=== PATIENT | female | born 1985 | race Caucasian/White ===

== ENCOUNTER 2016-12-14 18:44 | Emergency (ER) | payer BC ==
[2016-12-14 19:22] VITALS: BP 120/70
--- NOTE | 2016-12-14 19:47 | UC ---
Throat Pain/Nasal Lee HPI - HPI Summary HPI Summary: 2 day history of throat pain and difficulty swallowing, headache and malaise. - History of Current Complaint Chief Complaint: UCGeneralIllness Stated Complaint: SORE THROAT Time Seen by Provider: 12/14/16 19:25 Hx Obtained From: Patient Hx Last Menstrual Period: 12/14/16 Onset/Duration: Gradual Onset, Lasting Days - 2 Cough: Nonproductive Associated Signs & Symptoms: Positive: Dysphagia, Hoarseness - Epiglottits Risk Factors Epiglottis Risk Factors: Negative - Allergies/Home Medications Allergies/Adverse Reactions: Allergies Allergy/AdvReac Type Severity Reaction Status Date / Time No Known Allergies Allergy Verified 12/14/16 19:22 Home Medications: Home Medications Control Pill 1 tab DAILY 12/14/16 [History Confirmed 12/14/16] PMH/Surg Hx/FS Hx/Imm Hx Endocrine History Of: Denies: Diabetes Cardiovascular History Of: Denies: Cardiac Disorders Respiratory History Of: Denies: Asthma - Surgical History Surgical History: None - Family History Known Family History: Positive: Other - healthy family, no illnesses. - Social History Occupation: Employed Full-time Lives: With Family Alcohol Use: None Substance Use Type: None Smoking Status (MU): Never Smoked Tobacco - Immunization History Most Recent Influenza Vaccination: [id number] Review of Systems Constitutional: Fever, Fatigue Skin: Negative Eyes: Negative ENT: Sore Throat Respiratory: Negative Cardiovascular: Negative Gastrointestinal: Negative Genitourinary: Negative Motor: Negative Neurovascular: Negative Musculoskeletal: Negative Neurological: Negative Psychological: Negative All Other Systems Reviewed And Are Negative: Yes Physical Exam Triage Information Reviewed: Yes Appearance: Ill-Appearing - looks mildly unwell Vital Signs: Initial Vital Signs Temp 99.4 F 12/14/16 19:17 Pulse 94 12/14/16 19:17 Resp 17 12/14/16 19:17 BP 120/70 12/14/16 19:17 Pulse Ox 100 12/14/16 19:17 Eyes: Positive: Conjunctiva Clear ENT: Positive: Tonsillar swelling - bilateral large and red, Tonsillar exudate Dental Exam: Normal Neck: Positive: Supple, Enlarged Nodes @ - anterior cervical chain Respiratory: Positive: Lungs clear, Normal breath sounds Cardiovascular: Positive: RRR, No Murmur Musculoskeletal Exam: Normal Neurological Exam: Normal Psychological Exam: Normal Skin Exam: Normal Diagnostics - Laboratory Diagnostic Studies Completed/Ordered: rapid strep positive Throat Pain/Nasal Course/Dx - Course Course Of Treatment: amoxicillin for strep; ibuprofen for pain - Differential Dx/Diagnosis Provider Diagnoses: strep tonsillitis. Discharge - Discharge Plan Condition: Stable Disposition: HOME Prescriptions: Amoxicillin (*) 875 mg PO BID #19 tab Patient Education Materials: Strep Throat (ED) Additional Instructions: take full course of antibiotics.
[2016-12-14] MEDS ORDERED: Amoxicillin PO (*) 500 MG CAP PO ONE (19:48)
[2016-12-14] MEDS ORDERED: Ibuprofen TAB* 400 MG PO ONE (19:48)
== END 2016-12-14 20:03 | disposition home or self-care (01) ==
LOC: UCCORT 18:44
DX: J03.00 Acute streptococcal tonsillitis, unspecified (principal)
CPT/HCPCS: 87651; 99212; A9270-GY; G0463